=== PATIENT | female | born 1980 | race Caucasian/White ===

== ENCOUNTER 2020-12-20 16:32 | Inpatient (IN) | payer BC ==
[~2020-12-20] VITALS: Ht 172.7 cm; Wt 70.7 kg
--- NOTE | 2020-12-20 17:35 | NUR ---
Per Dr. Reese, pt. does not appear to have stroke symptoms, though pt. will be upgraded to a Level 1 stroke alert and neuro consult to be done. Stroke RN paged, pt. has been to CT, labs drawn, tele neuro cart in room.
--- NOTE | 2020-12-20 18:40 | NUR ---
REPORT GIVEN, ASSUMED CARE. PT IN BED TEARFUL. PER STROKE RN, ALL ORDERS COMPLETE AND WAITING FOR RESULTS.
[2020-12-20] MEDS ORDERED: LORazepam 2 mg/ml vial IV ONE (18:50)
--- NOTE | 2020-12-20 19:26 | NUR ---
per stroke rn, all orders complete. pt now medicated. symptoms all resolved per pt at this time. only complaining of slight headache
[2020-12-20 19:38] LABS: BASOPHILS % (AUTO) 0.7 % (0-1); EOSINOPHILS % (AUTO) 0.2 % (0-6); HEMATOCRIT 40.4 % (35.0-45.0); HEMOGLOBIN 13.9 g/dl (12.0-16.0); LYMPHOCYTES # (AUTO) 2.8 X10'3 (1.1-4.8); LYMPHOCYTES % (AUTO) 43.1 % (21-51); MEAN CORPUSCULAR HGB CONC 34.5 g/dL (33.0-36.5); MEAN CORPUSCULAR VOLUME 89.8 FL (78-98); MONOCYTES # (AUTO) 0.3 X10'3 (0-0.9); MONOCYTES % (AUTO) 5.2 % (2-12); NEUTROPHILS # (AUTO) 3.3 X10'3 (1.8-7.7); NEUTROPHILS % (AUTO) 50.8 % (42-75); PLATELET COUNT 279 X10'3 (140-440); RED CELL DISTRIBUTION WIDTH 13.4 % (11.5-14.5); WHITE BLOOD COUNT 6.5 X10'3 (4.5-11.0)
[2020-12-20 19:47] LABS: GLUCOSE 94 MG/DL (70-104)
[2020-12-20 19:48] LABS: ALBUMIN 4.3 G/DL (3.4-5.0); ALBUMIN/GLOBULIN RATIO 1.3 (1.1-1.5); ANION GAP 13 (8-16); BILIRUBIN,TOTAL 0.5 MG/DL (0.1-1.0); BLOOD UREA NITROGEN 10 MG/DL (7-18); BUN/CREATININE RATIO 12.5 (6.6-38.0); CALCIUM 9.2 MG/DL (8.5-10.1); CHLORIDE 107 MMOL/L (99-107); POTASSIUM 3.6 MMOL/L (3.5-5.1); SODIUM 142 MMOL/L (135-145); TOTAL CARBON DIOXIDE 22.2 MMOL/L (24-32); TOTAL PROTEIN 7.5 G/DL (6.4-8.2); eGFR 79 ML/MIN
[2020-12-20 19:49] LABS: ALANINE AMINOTRANSFERASE 16 U/L (12-78); ALKALINE PHOSPHATASE 54 IU/L (46-116); ASPARTATE AMINO TRANSFERASE 20 U/L (10-37)
[2020-12-20 19:56] LABS: PARTIAL THROMBOPLASTIN TIME 24 SECONDS (22-32)
[2020-12-20] MEDS ORDERED: proCHLORperazine 10 MG/2 ml inj IV ONE (20:00)
[2020-12-20] MEDS ORDERED: IBUP-1984 PO (20:20)
[2020-12-20] MEDS ORDERED: ACET-1008 PO (20:20)
[2020-12-20] MEDS ORDERED: potassium Cl 20 mEq SR tablet PO PRN ×2 (20:45)
[2020-12-20] MEDS ORDERED: mag hydrox/Alum hydrox/simeth 30ml oral suspension PO PRN (20:45)
[2020-12-20] MEDS ORDERED: magnesium hydroxide 30ml (MOM) UD suspension PO PRN (20:45)
[2020-12-20] MEDS ORDERED: acetaminophen 325mg tablet PO PRN (20:45)
[2020-12-20] MEDS ORDERED: magnesium 2GM in 50ml NS 50 ML IV PRN (20:45)
[2020-12-20] MEDS ORDERED: ondansetron/PF 4mg/2ml inj IV PRN (20:45)
[2020-12-20] MEDS ORDERED: magnesium 4gm in 100ml NS 100 ML IV PRN (20:45)
[2020-12-20] MEDS ORDERED: potassium Cl 40MEQ/1/2NS 520ml 520 ML IV PRN ×2 (20:45)
[2020-12-20] MEDS: normal saline 1000ml 1,000 ML IV SCH (20:55)
[2020-12-21] VITALS (8 sets, daily range): BP systolic 96–116; BP diastolic 44–73
[2020-12-21 05:50] LABS: CLARITY,URINE CLEAR (Clear); COLOR,URINE YELLOW (Yellow); GLUCOSE, URINE NEGATIVE (Neg); KETONES,URINE TRACE mg/dl (Neg); LEUKOCYTE ESTERASE ,URINE NEGATIVE (Neg); NITRITES, URINE NEGATIVE (Neg); OCCULT BLOOD,URINE NEGATIVE (Neg); PH,URINE 5.5 (4.8-8.0); PROTEIN,URINE NEGATIVE (Neg); UROBILINOGEN,URINE 0.2 E.U/dL (0.2-1.0)
[2020-12-21 05:55] LABS: UA COLLECTION TYPE STRAIGHT CATH
[2020-12-21 05:58] LABS: HEMOGLOBIN 11.7 g/dl (12.0-16.0); MEAN CORPUSCULAR HEMOGLOBIN 31.2 PG (27.0-31.0); MEAN CORPUSCULAR HGB CONC 34.6 g/dL (33.0-36.5); RED CELL DISTRIBUTION WIDTH 13.8 % (11.5-14.5)
[2020-12-21 06:00] LABS: URINE AMPHETAMINE SCREEN NEGATIVE (Neg); URINE BARBITUATE SCREEN NEGATIVE (Neg); URINE BENZODIAZEPINES SCREEN NEGATIVE (Neg); URINE CANNABINOID SCREEN POSITIVE (Neg); URINE COCAINE SCREEN NEGATIVE (Neg); URINE METHADONE SCREEN NEGATIVE (Neg); URINE OPIATE SCREEN NEGATIVE (Neg); URINE PHENCYCLIDINE SCREEN NEGATIVE (Neg)
[2020-12-21 06:02] LABS: BASOPHILS % (AUTO) 0.4 % (0-1); EOSINOPHILS % (AUTO) 1.3 % (0-6); HEMATOCRIT 33.7 % (35.0-45.0); LYMPHOCYTES # (AUTO) 1.8 X10'3 (1.1-4.8); LYMPHOCYTES % (AUTO) 52.3 % (21-51); MEAN CORPUSCULAR VOLUME 90.2 FL (78-98); MEAN PLATELET VOLUME 8.7 FL (7.4-10.4); MONOCYTES # (AUTO) 0.2 X10'3 (0-0.9); NEUTROPHILS # (AUTO) 1.4 X10'3 (1.8-7.7); PLATELET COUNT 225 X10'3 (140-440); RED BLOOD COUNT 3.74 X10'6 (4.20-5.60); WHITE BLOOD COUNT 3.5 X10'3 (4.5-11.0)
[2020-12-21 06:22] LABS: ALANINE AMINOTRANSFERASE 11 U/L (12-78); ALBUMIN 3.5 G/DL (3.4-5.0); ALBUMIN/GLOBULIN RATIO 1.4 (1.1-1.5); ALKALINE PHOSPHATASE 39 IU/L (46-116); ANION GAP 12 (8-16); ASPARTATE AMINO TRANSFERASE 17 U/L (10-37); BILIRUBIN,TOTAL 0.6 MG/DL (0.1-1.0); BLOOD UREA NITROGEN 10 MG/DL (7-18); BUN/CREATININE RATIO 12.5 (6.6-38.0); CALCIUM 8.1 MG/DL (8.5-10.1); CHLORIDE 108 MMOL/L (99-107); CHOL/HDL RATIO 1.8 (0.00-4.99); CHOLESTEROL 142 MG/DL (0-200); GLUCOSE 88 MG/DL (70-104); HDL CHOLESTEROL 77 MG/DL (35-60); LDL CHOLESTEROL 53 MG/DL (50-100); MAGNESIUM 1.9 MG/DL (1.5-2.4); POTASSIUM 3.5 MMOL/L (3.5-5.1); SODIUM 145 MMOL/L (135-145); TOTAL CARBON DIOXIDE 24.7 MMOL/L (24-32); TRIGLYCERIDES 39 MG/DL (20-135); eGFR 79 ML/MIN
[2020-12-21 06:43] LABS: PLATELET ESTIMATE NORMAL; TOTAL CELLS COUNTED 100
--- NOTE | 2020-12-21 07:13 | NUR ---
Patient in room ORTHO 4017. I have received report from Mariposa RN and had the opportunity to ask questions and assume patient care.
[2020-12-21] MEDS: K and/or MAG REPLACEMENT MC SCH ×2 (07:24→19:08)
[2020-12-21] MEDS: normal saline 1000ml 1,000 ML IV SCH ×2 (07:38→16:13)
--- NOTE | 2020-12-21 08:56 | NUR ---
Unable to complete Orthostatic Vitas at this time, patient unable to stand. Physical Therapy will evaluate later this afternoon
--- NOTE | 2020-12-21 09:03 | NUR ---
Paged Dr. Heller to inform unable to complete Orthostatic B/Ps due to unable to stand at this time. PAGER ID: [phone] MESSAGE: Ortho/Neuro [id number] Wanda Monson unable to complete Orthostatic B/Ps due to patient unable to stand, Physical therapy will evaluate later this afternoon and assist. Shana ABDULLAHI [id number]
--- NOTE | 2020-12-21 18:22 | NUR ---
Problems reprioritized. Patient report given, questions answered & plan of care reviewed with Andrew ABDULLAHI.
[2020-12-21] MEDS ORDERED: enoxaparin 40mg/0.4ml syringe SQ SCH (20:00)
[2020-12-22] VITALS: BP 117/68
[2020-12-22 01:41] VITALS: BP 117/72
[2020-12-22] MEDS: normal saline 1000ml 1,000 ML IV SCH (03:19)
[2020-12-22 04:00] VITALS: BP 116/68
[2020-12-22 06:44] LABS: BASOPHILS % (AUTO) 0.5 % (0-1); EOSINOPHILS % (AUTO) 0.8 % (0-6); HEMATOCRIT 37.3 % (35.0-45.0); HEMOGLOBIN 12.8 g/dl (12.0-16.0); LYMPHOCYTES % (AUTO) 51.9 % (21-51); MEAN CORPUSCULAR HEMOGLOBIN 30.8 PG (27.0-31.0); MEAN CORPUSCULAR HGB CONC 34.2 g/dL (33.0-36.5); MEAN PLATELET VOLUME 9.2 FL (7.4-10.4); MONOCYTES # (AUTO) 0.3 X10'3 (0-0.9); MONOCYTES % (AUTO) 6.8 % (2-12); NEUTROPHILS # (AUTO) 1.6 X10'3 (1.8-7.7); PLATELET COUNT 220 X10'3 (140-440); RED BLOOD COUNT 4.14 X10'6 (4.20-5.60); RED CELL DISTRIBUTION WIDTH 13.5 % (11.5-14.5); WHITE BLOOD COUNT 3.9 X10'3 (4.5-11.0)
[2020-12-22 06:47] LABS: ALANINE AMINOTRANSFERASE 20 U/L (12-78); ALBUMIN 3.5 G/DL (3.4-5.0); ALBUMIN/GLOBULIN RATIO 1.3 (1.1-1.5); ALKALINE PHOSPHATASE 40 IU/L (46-116); ANION GAP 7 (8-16); ASPARTATE AMINO TRANSFERASE 18 U/L (10-37); BILIRUBIN,TOTAL 0.5 MG/DL (0.1-1.0); BLOOD UREA NITROGEN 14 MG/DL (7-18); BUN/CREATININE RATIO 17.9 (6.6-38.0); CALCIUM 8.7 MG/DL (8.5-10.1); CHLORIDE 108 MMOL/L (99-107); CREATININE 0.78 MG/DL (0.40-0.90); GLUCOSE 85 MG/DL (70-104); POTASSIUM 4.2 MMOL/L (3.5-5.1); SODIUM 139 MMOL/L (135-145); TOTAL CARBON DIOXIDE 24.3 MMOL/L (24-32); TOTAL PROTEIN 6.2 G/DL (6.4-8.2); eGFR 81 ML/MIN
[2020-12-22 07:45] VITALS: BP 107/67
[2020-12-22] MEDS: K and/or MAG REPLACEMENT MC SCH (08:00)
--- NOTE | 2020-12-22 09:04 | NUR ---
PAGER ID: [phone] MESSAGE: Noreen-O/N [id number] Iona would like Tylenol for Headache
[2020-12-22 09:48] LABS: PLATELET ESTIMATE NORMAL
[2020-12-22 09:50] LABS: BURR CELLS FEW; SCHISTOCYTES FEW
[2020-12-22] MEDS ORDERED: acetaminophen 325mg tablet PO PRN (10:00)
[2020-12-22 11:00] VITALS: BP 115/66
--- NOTE | 2020-12-22 12:00 | NUR ---
Patient discharge instructions reviewed with patient, Patient verbalized understanding. Patients IV Dc'd cannula intact. Tele Dc'd for discharge. Patient taken to vehicle via wheelchair. Patient states has all belongings.
== END 2020-12-22 12:05 | disposition home or self-care (01) | DRG 72 ==
LOC: ER 16:33 → ED HOLD 20:44 → ORTHO 4S 23:50
PROVIDERS: ADMIT Family Medicine; ATTEND Family Medicine
DX: G93.40 Encephalopathy, unspecified (principal); G43.909 Migraine, unspecified, not intractable, without status migrainosus; G89.29 Other chronic pain; M54.2 Cervicalgia; M25.519 Pain in unspecified shoulder; Z83.3 Family history of diabetes mellitus; Z87.820 Personal history of traumatic brain injury; Z88.0 Allergy status to penicillin; Z88.5 Allergy status to narcotic agent; Z91.010 Allergy to peanuts; Z79.899 Other long term (current) drug therapy
CPT/HCPCS: 36415; 70450; 70551; 71045; 74176; 80053; 80061; 80305; 81003; 82140; 82948; 83605; 83735; 84443; 85007; 85008; 85025; 85610; 85730; 86885; 86900; 86901; 87040; 87081; 92508; 92616; 93005; 93306; 96374; 97110; 97162; 97530; 99285; G0378; J1650; J2060; J7030